=== PATIENT | male | born 1995 | race Hispanic/Latino ===

== ENCOUNTER 2019-03-19 08:27 | Emergency (ER) | payer BC ==
[2019-03-19] MEDS ORDERED: ONDANSETRON 4 MG/2 ML INJ IV ONE (09:30)
[2019-03-19] MEDS ORDERED: SODIUM CHLORIDE 0.9% 1000 ML 1,000 ML IV ONE (09:30)
[2019-03-19] MEDS ORDERED: DICYCLOMINE 20 MG/2 ML INJ IM ONE (09:30)
[2019-03-19 12:37] LABS: Basophils % (Auto) 0.6 % (0.0-1.8); Eosinophils # (Auto) 0.1 K/mm3 (0.0-0.4); Eosinophils % (Auto) 1.5 % (0.0-4.3); Hemoglobin 14.2 gm/dl (11.8-15.2); Lymphocytes # (Auto) 1.5 K/mm3 (1.2-5.4); Lymphocytes % (Auto) 23.4 % (13.4-35.0); Mean Corpuscular HGB Conc 34 % (32-34); Mean Corpuscular Volume 97 fl (84-94); Monocytes # (Auto) 0.4 K/mm3 (0.0-0.8); Monocytes % (Auto) 6.3 % (0.0-7.3); Platelet Count 285 K/mm3 (140-440); Red Blood Count 4.35 M/mm3 (3.65-5.03); Red Cell Distribution Width 12.7 % (13.2-15.2)
[2019-03-19 13:00] LABS: Alanine Aminotransferase 13 units/L (7-56); Albumin 4.3 g/dL (3.9-5); BUN/Creatinine Ratio 14; Blood Urea Nitrogen 10 mg/dL (9-20); Calcium 8.5 mg/dL (8.4-10.2); Hemolysis Index 13
--- NOTE | 2019-03-19 13:34 | Cat Scan Report ---
CT abdomen pelvis w con INDICATION: 3 weeks bloody diarrhea NV. TECHNIQUE: All CT scans at this location are performed using the following dose modulation technique: Automated exposure control. CONTRAST: Omnipaque 300, 100 cc IV injection. COMPARISON: None available. CT ABDOMEN: The parenchymal organs are unremarkable in appearance. Negative for abdominal mass, fluid or inflammation. The bowel is not dilated or thickened. Reactive appearing mesenteric nodes are pres ent. CT PELVIS: Negative for distal ureteral stone, pelvic fluid collection or inflammation. The appendix is normal. IMPRESSION: Negative for obstruction or localized inflammation. Signer Name: Navid Machuca MD Signed: 03/19/2019 1:30 PM Workstation Name: [id number]
--- NOTE | 2019-03-19 14:12 | Emergency Department Report ---
ED Abdominal Pain HPI - General Chief Complaint: Abdominal Pain Stated Complaint: ABD PAIN Time Seen by Provider: 03/19/19 09:08 Source: patient Mode of arrival: Ambulatory Limitations: No Limitations - History of Present Illness Initial Comments: Patient is a 23-year-old [place] male who is presenting with 3 weeks of diarrhea and crampy left lower quadrant abdominal pain. Patient denies fever. Patient states that they have been some blood in his stool and he also has a mucous like a rectal discharge. Recent has a appointment to see a GI doctor in several days but states that his cramps was so bad this morning he wanted to come and get checked out. Patient states he has nausea vomiting over the last 2-3 days as well. Patient feels weak at times and is been near syncopal. Patient denies chest pain shortness of breath cough cold or congestion. Severity scale (0 -10): 6 Quality: cramping - Related Data Previous Rx's Medication Instructions Recorded Last Taken Type Dicyclomine [Bentyl] 20 mg PO QID #10 tablet 03/19/19 Unknown Rx Diphenoxylate/Atropine [Lomotil] 1 tab PO Q4H PRN #10 tablet 03/19/19 Unknown Rx Ondansetron [Zofran Odt] 4 mg PO Q8HR #10 tab.rapdis 03/19/19 Unknown Rx Allergies Allergy/AdvReac Type Severity Reaction Status Date / Time No Known Allergies Allergy Unverified 03/19/19 08:40 ED Review of Systems ROS: Stated complaint: ABD PAIN Other details as noted in HPI Comment: All other systems reviewed and negative ED Past Medical Hx - Past Medical History Previous Medical History?: No - Surgical History Past Surgical History?: No - Social History Smoking Status: Never Smoker Substance Use Type: Marijuana - Medications Home Medications: Home Medications Medication Instructions Recorded Confirmed Last Taken Type Dicyclomine [Bentyl] 20 mg PO QID #10 tablet 03/19/19 Unknown Rx Diphenoxylate/Atropine [Lomotil] 1 tab PO Q4H PRN #10 tablet 03/19/19 Unknown Rx Ondansetron [Zofran Odt] 4 mg PO Q8HR #10 tab.rapdis 03/19/19 Unknown Rx ED Physical Exam - General Limitations: No Limitations General appearance: alert, in no apparent distress - Head Head exam: Present: atraumatic, normocephalic - Eye Eye exam: Present: normal appearance, PERRL, EOMI - ENT ENT exam: Present: mucous membranes moist - Neck Neck exam: Present: normal inspection - Respiratory Respiratory exam: Present: normal lung sounds bilaterally. Absent: respiratory distress, wheezes, rales, rhonchi - Cardiovascular Cardiovascular Exam: Present: regular rate, normal rhythm, normal heart sounds. Absent: systolic murmur, diastolic murmur, rubs, gallop - GI/Abdominal GI/Abdominal exam: Present: soft, tenderness (LLQ pain), normal bowel sounds. Absent: distended, guarding, rebound, rigid - Rectal Rectal exam: Present: deferred - Extremities Exam Extremities exam: Present: normal inspection - Back Exam Back exam: Present: normal inspection - Neurological Exam Neurological exam: Present: alert, oriented X3 - Psychiatric Psychiatric exam: Present: normal affect, normal mood - Skin Skin exam: Present: warm, dry, intact, normal color. Absent: rash ED Medical Decision Making - Lab Data Result diagrams: 03/19/19 10:05 03/19/19 10:05 Lab Results 03/19/19 03/19/19 Range/Units 10:05 10:05 WBC 6.3 (4.5-11.0) K/mm3 RBC 4.35 (3.65-5.03) M/mm3 Hgb 14.2 (11.8-15.2) gm/dl Hct 42.0 (35.5-45.6) % MCV 97 H (84-94) fl MCH 33 H (28-32) pg MCHC 34 (32-34) % RDW 12.7 L (13.2-15.2) % Plt Count 285 (140-440) K/mm3 Lymph % (Auto) 23.4 (13.4-35.0) % Ross % (Auto) 6.3 (0.0-7.3) % Eos % (Auto) 1.5 (0.0-4.3) % Baso % (Auto) 0.6 (0.0-1.8) % Lymph # 1.5 (1.2-5.4) K/mm3 Ross # 0.4 (0.0-0.8) K/mm3 Eos # 0.1 (0.0-0.4) K/mm3 Baso # 0.0 (0.0-0.1) K/mm3 Seg Neutrophils % 68.2 (40.0-70.0) % Seg Neutrophils # 4.3 (1.8-7.7) K/mm3 Sodium 142 (137-145) mmol/L Potassium 4.0 (3.6-5.0) mmol/L Chloride 106.7 (98-107) mmol/L Carbon Dioxide 25 (22-30) mmol/L Anion Gap 14 mmol/L BUN 10 (9-20) mg/dL Creatinine 0.7 L (0.8-1.5) mg/dL Estimated GFR > 60 ml/min BUN/Creatinine Ratio 14 % Glucose 85 (75-100) mg/dL Calcium 8.5 (8.4-10.2) mg/dL Total Bilirubin 0.20 (0.1-1.2) mg/dL AST 18 (5-40) units/L ALT 13 (7-56) units/L Alkaline Phosphatase 48 (35-129) units/L Total Protein 6.7 (6.3-8.2) g/dL Albumin 4.3 (3.9-5) g/dL Albumin/Globulin Ratio 1.8 % Lipase 22 (13-60) units/L - Radiology Data CT abdomen pelvis w con INDICATION: 3 weeks bloody diarrhea NV. TECHNIQUE: All CT scans at this location are performed using the following dose modulation technique: Automated exposure control. CONTRAST: Omnipaque 300, 100 cc IV injection. COMPARISON: None available. CT ABDOMEN: The parenchymal organs are unremarkable in appearance. Negative for abdominal mass, fluid or inflammation. The bowel is not dilated or thickened. Reactive appearing mesenteric nodes are present. CT PELVIS: Negative for distal ureteral stone, pelvic fluid collection or inflammation. The appendix is normal. IMPRESSION: Negative for obstruction or localized inflammation. Signer Name: Navid Machuca MD Signed: 03/19/2019 1:30 PM Workstation Name: [email or web address] - Medical Decision Making Differential diagnosis includes colitis diverticulitis irritable bowel syndrome and inflammatory bowel syndrome including Crohn's and ulcerative colitis. CT was negative for bowel inflammation. Irritable bowel syndrome was most likely. patients laboratory studies within normal limits. Patient given several medications for symptomatic relief Critical care attestation.: If time is entered above; I have spent that time in minutes in the direct care of this critically ill patient, excluding procedure time. ED Disposition Clinical Impression: Irritable bowel syndrome Qualifiers: Irritable bowel syndrome type: with diarrhea Qualified Code(s): K58.0 - Irritable bowel syndrome with diarrhea Disposition: TO HOME OR SELFCARE Is pt being admited?: No Does the pt Need Aspirin: No Condition: Stable Instructions: Irritable Bowel Syndrome (ED) Referrals: AVA SAUCEDA MD [Primary Care Provider] - 3-5 Days Time of Disposition: 14:12
[2019-03-19 14:23] VITALS: BP 125/75
== END 2019-03-19 14:22 | disposition home or self-care (01) ==
LOC: ED 08:27
DX: K58.0 Irritable bowel syndrome with diarrhea (principal); F12.10 Cannabis abuse, uncomplicated; Z79.899 Other long term (current) drug therapy
CPT/HCPCS: 36415; 74177; 80053; 83690; 85025; 96361; 96372; 96374; 99284; J0500; J2405; J7030; Q9967